=== PATIENT | female | born 2000 | race Two or more races ===

== ENCOUNTER 2024-12-09 05:10 | Emergency (ER) | payer OTHER ==
[~2024-12-09] VITALS: Ht 157.5 cm; Wt 54.4 kg
== END 2024-12-09 06:10 ==
LOC: ER 05:18
DX: T19.2XXA Foreign body in vulva and vagina, initial encounter (principal); X58.XXXA Exposure to other specified factors, initial encounter; Z88.6 Allergy status to analgesic agent